=== PATIENT | female | born 1985 | race Two or more races ===

== ENCOUNTER 2021-09-03 14:01 | Emergency (ER) | payer OTHER ==
[~2021-09-03] VITALS: Ht 165.1 cm; Wt 122.5 kg
[2021-09-03 15:49] LABS: Basophils # (auto) 0.1 10 ^3/uL (0-0.2); Eosinophils # (auto) 0.2 10 ^3/uL (0-0.8); Eosinophils % (auto) 1.2 % (0.0-7.0); Hematocrit 39.4 % (36.0-46.0); Hemoglobin 12.7 g/dL (12.2-16.2); Lymphocytes # (auto) 4.7 10 ^3/uL (0.4-5.4); Lymphocytes % (auto) 37.2 % (10.0-50.0); Mean Corpuscular Hemoglobin 27.8 pg (28.0-32.0); Mean Corpuscular Hgb Conc. 32.3 g/dL (32.0-36.0); Mean Corpuscular Volume 86.1 fL (80.0-100.0); Monocytes # (auto) 0.9 10 ^3/uL (0-1.3); Monocytes % (auto) 7.2 % (0.0-12.0); Neutrophils # (auto) 6.8 10 ^3/uL (1.6-8.6); Neutrophils % (auto) 53.4 % (37.0-80.0); Nucleated Red Blood Cells % 0.1 %; Red Blood Cells 4.58 10^6/uL (4.0-5.20); Red Cell Distribution Width 14.1 % (11.8-14.3); White Blood Cell 12.7 10^3/uL (4.4-10.8)
[2021-09-03 16:06] LABS: Albumin 3.2 g/dL (3.4-5.0); Calcium 8.9 mg/dL (8.5-10.1); Magnesium 2.1 mg/dL (1.6-2.6); Potassium 3.7 mmol/L (3.5-5.1)
[2021-09-03 16:14] LABS: BUN/Creatinine Ratio 14.8; Bilirubin, Total 0.2 mg/dL (0.2-1.0); Total Protein 7.1 g/dL (6.4-8.2)
[2021-09-03] MEDS ORDERED: ASPirin 81 mg TAB PO ONE (17:15)
[2021-09-03 17:31] VITALS: BP 137/82
== END 2021-09-03 17:34 | disposition home or self-care (01) ==
LOC: ER 14:01
DX: R07.89 Other chest pain (principal); F41.9 Anxiety disorder, unspecified; E46 Unspecified protein-calorie malnutrition; F17.210 Nicotine dependence, cigarettes, uncomplicated
CPT/HCPCS: 36415; 71045; 80053; 83735; 84484; 85025; 93005

== ENCOUNTER 2024-12-19 11:25 | Emergency (ER) | payer SELFPAY ==
[~2024-12-19] VITALS: Ht 165.1 cm; Wt 140.0 kg
[2024-12-19 11:40] VITALS: BP 170/132; PULSE 93; RESP 18; TEMP 99; O2SAT 99
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
[2024-12-19 12:30] LABS: Urine Bacteria FEW /hpf (None Seen); Urine Blood 3+ /uL (Negative); Urine Clarity Hazy (Clear); Urine Color Yellow (Yellow); Urine Mucus FEW (None Seen); Urine Protein, UAD Negative (Negative); Urine Specific Gravity 1.014 (1.001-1.035); Urine Squamous Epithelial Cell MANY /hpf (<5); Urine Urobilinogen Normal (Negative); Urine WBC 1 /HPF (0-5)
[2024-12-19 12:31] LABS: Amphetamine Screen, Urine Neg (NEGATIVE); Barbiturate Scree,Urine Neg (NEGATIVE); Benzodiazephine Screen, Urine Neg (NEGATIVE); Cannabinoid Screen, Urine Neg (NEGATIVE); Cocaine Screen, Urine Neg (NEGATIVE); Opiate Scree,Urine Neg (NEGATIVE); Phencyclidine Screen, Urine Neg (NEGATIVE)
== END 2024-12-19 13:00 | disposition home or self-care (01) ==
LOC: ER 11:25
DX: T74.21XA Adult sexual abuse, confirmed, initial encounter (principal); N93.9 Abnormal uterine and vaginal bleeding, unspecified; F17.210 Nicotine dependence, cigarettes, uncomplicated; Z90.89 Acquired absence of other organs; Z79.899 Other long term (current) drug therapy
CPT/HCPCS: 80307; 81001; 81025

== ENCOUNTER 2025-01-17 17:26 | Emergency (ER) | payer SELFPAY ==
[~2025-01-17] VITALS: Ht 165.1 cm; Wt 143.4 kg
[2025-01-17 17:38] VITALS: BP 129/87; RESP 16; TEMP 98.7; O2SAT 97
[2025-01-17 17:40] VITALS: PULSE 75
[2025-01-17 18:11] LABS: Basophils # (auto) 0.1 10 ^3/uL (0-0.2); Basophils % (auto) 0.9 % (0.0-2.0); Eosinophils # (auto) 0.4 10 ^3/uL (0-0.8); Hematocrit 40.6 % (36.0-46.0); Hemoglobin 13.6 g/dL (12.2-16.2); Lymphocytes # (auto) 2.5 10 ^3/uL (0.4-5.4); Lymphocytes % (auto) 27.8 % (10.0-50.0); Mean Corpuscular Hgb Conc. 33.5 g/dL (32.0-36.0); Mean Corpuscular Volume 86.5 fL (80.0-100.0); Monocytes # (auto) 0.5 10 ^3/uL (0-1.3); Monocytes % (auto) 5.4 % (0.0-12.0); Neutrophils # (auto) 5.6 10 ^3/uL (1.6-8.6); Neutrophils % (auto) 61.9 % (37.0-80.0); Platelet Count (auto) 342 10^3/uL (140-450); Red Blood Cells 4.69 10^6/uL (4.0-5.20); Red Cell Distribution Width 14.2 % (11.8-14.3); White Blood Cell 9.1 10^3/uL (4.4-10.8)
[2025-01-17 18:33] LABS: Alanine Aminotransferase 27 U/L (7-40); Albumin 4.3 g/dL (3.2-4.8); Alkaline Phosphatase 108 U/L (46-116); Anion Gap 8 (5-15); Aspartate Aminotransferase 15 U/L (13-40); BUN/Creatinine Ratio 12.7 (10.0-20.0); Blood Urea Nitrogen 9 mg/dL (9-23); Carbon Dioxide 25 mmol/L (20-31); Glucose 95 mg/dL (74-106); Lipase 25 U/L (12-53); Potassium 3.9 mmol/L (3.5-5.1); Sodium 140 mmol/L (136-145)
[2025-01-17 18:34] LABS: Bilirubin, Total 0.4 mg/dL (0.2-1.0)
--- NOTE | 2025-01-17 18:59 | ED.PDOC ---
GI ASSESSMENT HPI Comments 39-year-old female with a history of GERD and morbid obesity brought in by self complaining of bilateral upper quadrant pain radiating to the mid chest after eating lunch today. Patient reports similar symptoms in the past after eating certain foods. She states the pain also radiates to her left upper extremity and to her jaw. She states she was seen at [facility] in the past and was told this pain was due to acid reflux. She states the current pain is different because it is more localized to the right upper quadrant. She denies any nausea, vomiting, diaphoresis, edema, diarrhea, constipation or urinary symptoms. Chief Complaint: Abdominal Pain Time Seen by MD: 17:42 Primary Care Provider: DENIES Allergies: Coded Allergies: NO KNOWN ALLERGIES (Unverified , 09/03/21) Mode of Arrival: Ambulatory Past Medical History PAST MEDICAL HISTORY: GERD, Thyroid Past Medical History (Other): Morbid obesity Surgical History: Thyroidectomy FOLDER TAPER OPERATOR History: No Pertinent FOLDER TAPER OPERATOR History Family History Family History: Reviewed,noncontributory to illness, Family hx of heart maine, Family hx of HTN, Family hx of stroke Social History Smoker: Cigarettes, Less Than 1 Pack/Day Alcohol: Occasionally Drugs: Denies Drug Use Lives In: Home All Other Systems: Reviewed and Negative (Comprehensive systems review obtained and negative except for what is stated in the HPI.) Physical Exam General Appearance: No Apparent Distress, Obese HEENT: Other (Pupils and face symmetric. Moist mucous membranes.) Neck: Full Range of Motion, Normal Inspection Respiratory: Lungs Clear, No Accessory Muscle Use, No Respiratory Distress, Normal Breath Sounds Cardiovascular: No Edema, No JVD, Regular Rate/Rhythm Breast Exam: Deferred Gastrointestinal: Epigastric, LUQ, RUQ, Tenderness Genitalia: Deferred Pelvic: Deferred Rectal: Deferred Extremities: Normal inspection, Normal range of motion, Non-tender, No pedal edema Neurologic: Alert (Oriented x4), Normal Affect, Normal Mood, Other (Ambulatory) Cerebellar Function: NOT DONE Reflexes: NOT DONE Skin: Dry, Normal Color, Warm Lymphatic: NOT DONE EKG EKG : Comments Sinus rhythm, rate 75, normal intervals, normal axis, normal QRS, no ST/T changes. Was a procedure done? Was a procedure done?: No GI differential Dx Differential Diagnosis: Angina/MN, Cholangitis, Cholecystitis, Constipation, Diverticular disease, Gastritis/PUD, Gastroenteritis, Inflammatory BD, Ischemic Bowel, UTI, Dehydration, Electrolyte Imbalance, Food Poisoning, , Bacterial, Viral, Impaction, Stress Ulcer, Other X-Ray, Labs, Meds, VS Vital Signs Date Time Temp Pulse Resp B/P (MAP) Pulse Ox O2 Delivery O2 Flow Rate FiO2 01/17/25 17:40 75 01/17/25 17:38 98.7 77 16 129/87 (101) 97 98.7 Lab Test 01/17/25 19:17 01/17/25 17:56 Range/Units Urine Color Yellow Yellow Urine Clarity Turbid H Clear Urine pH 7.5 5.0-9.0 Urine Specific [place] 1.027 1.001-1.035 Urine Protein Trace H Negative Urine Ketones Negative Negative Urine Blood Negative Negative /uL Urine Nitrite Negative Negative Urine Bilirubin Negative Negative Urine Urobilinogen Normal Negative mg/dL Urine Leukocyte Esterase Negative Negative /uL Urine RBC 2 0 - 4 /hpf Urine Microscopic WBC < 1 0-5 /HPF Urine Squamous Epithelial Cells Mod <5 /hpf Urine Bacteria None seen None Seen /hpf Urine Mucus Few None Seen Urine Glucose Normal Normal mg/dL Urine Test Negative Negative White Blood Count 9.1 4.4-10.8 10^3/uL Red Blood Count 4.69 4.0-5.20 10^6/uL Hemoglobin 13.6 12.2-16.2 g/dL Hematocrit 40.6 36.0-46.0 % Mean Corpuscular Volume 86.5 80.0-100.0 fL Mean Corpuscular Hemoglobin 29.0 28.0-32.0 pg Mean Corpuscular Hemoglobin Concent 33.5 32.0-36.0 g/dL Red Cell Distribution Width 14.2 11.8-14.3 % Platelet Count 342 140-450 10^3/uL Mean Platelet Volume 8.0 6.9-10.8 fL Neutrophils (%) (Auto) 61.9 37.0-80.0 % Lymphocytes (%) (Auto) 27.8 10.0-50.0 % Monocytes (%) (Auto) 5.4 0.0-12.0 % Eosinophils (%) (Auto) 4.0 0.0-7.0 % Basophils (%) (Auto) 0.9 0.0-2.0 % Neutrophils # (Auto) 5.6 1.6-8.6 10 ^3/uL Lymphocytes # (Auto) 2.5 0.4-5.4 10 ^3/uL Monocytes # (Auto) 0.5 0-1.3 10 ^3/uL Eosinophils # (Auto) 0.4 0-0.8 10 ^3/uL Basophils # (Auto) 0.1 0-0.2 10 ^3/uL Nucleated Red Blood Cells 0.0 % Sodium Level 140 136-145 mmol/L Potassium Level 3.9 3.5-5.1 mmol/L Chloride Level 107 98-107 mmol/L Carbon Dioxide Level 25 20-31 mmol/L Anion Gap 8 5-15 Blood Urea Nitrogen 9 9-23 mg/dL Creatinine 0.71 0.550-1.02 mg/dL Glomerular Filtration Rate Calc 112 >90 mL/min BUN/Creatinine Ratio 12.7 10.0-20.0 Serum Glucose 95 74-106 mg/dL Calcium Level 8.7 8.7-10.4 mg/dL Total Bilirubin 0.4 0.2-1.0 mg/dL Aspartate Amino Transferase (AST) 15 13-40 U/L Alanine Aminotransferase (ALT) 27 7-40 U/L Alkaline Phosphatase 108 46-116 U/L Troponin I High Sensitivity < 3 L </=34 ng/L B-Type Natriuretic Peptide 27.80 0-100 pg/mL Total Protein 7.0 5.7-8.2 g/dL Albumin 4.3 3.2-4.8 g/dL Lipase 25 12-53 U/L X-Ray, Labs, Meds, VS Comment 39-year-old female with a history of GERD and morbid obesity complaining of right greater than left upper abdominal pain radiating to the mid chest Vitals unremarkable Exam remarkable for right greater than left upper quadrant and epigastric tenderness to palpation. Rhythm strip independently interpreted by me: Sinus rhythm, rate 75, no ectopy. Chest x-ray not done CT abdomen and pelvis not done CBC normal. CMP, lipase, UA and urine unremarkable. Patient declined initial treatment in the ED, stating she does not have health insurance and would prefer just to obtain a workup initially before electing to undergo treatment. Patient was called multiple times for imaging however there was no answer. It was assumed the patient eloped from the ED. Time of 1ST Reevaluation: 18:58 Reevaluation 1ST: Unchanged Patient Education/Counseling: Diagnosis, Treatment, Need For Follow Up Family Education/Counseling: No Family Present Departure 1 Departure Time of Disposition: 21:22 Impression: Primary Impression: Abdominal pain Qualified Codes: R10.9 - Unspecified abdominal pain Additional Impression: Chest pain Qualified Codes: R07.9 - Chest pain, unspecified Disposition: 07 LEFT AWOL/ELOPED Condition: Fair Discharged With: Self Critical Care Note Critical Care Time?: No Stability Stability form required: No Heart Score Heart Score: Heart Score Response (Comments) Value History Slightly Suspicious 0 EKG Normal 0 Age <45 0 Risk Factors 1 or 2 risk factors 1 Troponin Normal limit 0 Total 1 HUI ALVAREZ MD Jan 17, 2025 18:59
[2025-01-17 19:02] LABS: Calcium 8.7 mg/dL (8.7-10.4); Chloride 107 mmol/L (98-107)
[2025-01-17 19:18] LABS: Urine Bacteria None Seen /hpf (None Seen)
[2025-01-17 19:40] LABS: Urine Blood Negative /uL (Negative); Urine Clarity Turbid (Clear); Urine Color Yellow (Yellow); Urine Mucus FEW (None Seen); Urine Protein, UAD TRACE (Negative); Urine Specific Gravity 1.027 (1.001-1.035); Urine Squamous Epithelial Cell MOD /hpf (<5); Urine Urobilinogen Normal (Negative); Urine WBC < 1 /HPF (0-5); Urine pH 7.5 (5.0-9.0)
--- NOTE | 2025-01-18 12:25 | ECG ---
[facility] Test Date: 2025-01-17 Test Time: 17:40:13 Pat Name: KAIA PARMAR Department: ER Room: Gender: F Security Services Manager: JACQUELINE : 1985 Requested By: HUI LIMON Order Number: [id number] Reading MD: Matt Zavala Measurements Intervals [place] Rate: 75 P: 44 MT: 156 QRS: 28 QRSD: 89 T: 45 QT: 400 QTc: 447 Interpretive Statements Sinus rhythm Electronically Signed On 01-19-2025 14:57:13 PDT by Matt Zavala Please click the below link to view image of tracing.
== END 2025-01-17 22:09 | disposition left against medical advice (07) ==
LOC: ER 17:26
DX: R10.11 Right upper quadrant pain (principal); R10.12 Left upper quadrant pain; R10.13 Epigastric pain; R68.84 Jaw pain; R07.89 Other chest pain; M79.642 Pain in left hand; K21.9 Gastro-esophageal reflux disease without esophagitis; E66.01 Morbid (severe) obesity due to excess calories; F17.210 Nicotine dependence, cigarettes, uncomplicated; Z90.89 Acquired absence of other organs
CPT/HCPCS: 36415; 80053; 81001; 81025; 83690; 83880; 84484; 85025; 93005

== ENCOUNTER 2025-05-09 10:41 | Emergency (ER) | payer SELFPAY ==
[~2025-05-09] VITALS: Ht 165.1 cm; Wt 143.9 kg
[2025-05-09 10:43] VITALS: BP 138/90; PULSE 94; RESP 18; TEMP 98.8; O2SAT 96
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
[2025-05-09] MEDS ORDERED: PRED20TA2 PO (12:55)
[2025-05-09] MEDS ORDERED: EPIN0.1I11 IJ (12:55)
[2025-05-09] MEDS: predniSONE 20 MG TAB PO ONE (14:05)
== END 2025-05-09 14:09 | disposition home or self-care (01) ==
LOC: ER 10:41
DX: T78.40XA Allergy, unspecified, initial encounter (principal); F17.210 Nicotine dependence, cigarettes, uncomplicated; F10.90 Alcohol use, unspecified, uncomplicated; Z90.89 Acquired absence of other organs; W57.XXXA Bitten or stung by nonvenomous insect and other nonvenomous arthropods, initial encounter; Y93.89 Activity, other specified; Y92.89 Other specified places as the place of occurrence of the external cause; Y99.8 Other external cause status; Y90.9 Presence of alcohol in blood, level not specified
CPT/HCPCS: 99283; J7512